=== PATIENT | female | born 1990 | race Caucasian/White ===

== ENCOUNTER 2017-08-28 19:01 | Emergency (ER) | payer BC, OTHER ==
[~2017-08-28] VITALS: Ht 172.7 cm; Wt 75.0 kg
[~2017-08-28 19:01] MED LIST: PAIN MED
[2017-08-28 20:52] VITALS: BP 114/67
== END 2017-08-28 21:13 | disposition home or self-care (01) ==
LOC: EMS 19:02
DX: M25.512 Pain in left shoulder (principal); V43.52XA Car driver injured in collision with other type car in traffic accident, initial encounter; Y93.89 Activity, other specified; Y92.488 Other paved roadways as the place of occurrence of the external cause; Y99.8 Other external cause status
CPT/HCPCS: 99282; 99283